=== PATIENT | male | born 1970 | race Caucasian/White ===

== ENCOUNTER → 2017-02-17 | Outpatient (CLI) | payer OTHER | LOC: BIMAGING 14:27 | PROVIDERS: ATTEND Orthopaedic Surgery Hand Surgery | DX: M25.532 Pain in left wrist (principal) ==

== ENCOUNTER 2018-05-05 08:39 | Emergency (ER) | payer OTHER ==
--- NOTE | 2018-05-05 08:53 | EDPHY ---
H & P Time Seen by Provider: 05/05/18 08:53 HPI/ROS: Chief complaint. Chest pain, dizziness HPI. 47-year-old male presents to the emergency department with left anterior chest tightness. No radiation. For the last week he has been dizzy with bending and standing. His chest tightness began this morning. He feels like he can't get deep breath. He has a history of GERD it feels similar though in slightly different location of his chest. He did have some heartburn this morning. He has had no fever cough. No unusual leg pain or swelling. No change in his discomfort with exertion, deep breathing, position. No history of heart problems, diabetes, hypertension. No abdominal pain. ROS 10 systems were reviewed and negative with the exception of the elements mentioned in the history of present illness Past Medical/Surgical History: Cholecystectomy, enlarged prostate Social History: , nonsmoker, no alcohol Smoking Status: Never smoked Physical Exam: General Appearance: Alert well-developed male mild distress. Vital signs are stable Eyes: Pupils equal and round no pallor or injection. ENT, Mouth: Mucous membranes are moist. Respiratory: There are no retractions, lungs are clear to auscultation. Cardiovascular: Regular rate and rhythm. Gastrointestinal: Abdomen is soft and nontender, no masses, bowel sounds normal. Neurological: Awake and alert, sensory and motor exams grossly normal. Skin: Warm and dry, no rashes. Musculoskeletal: Neck is supple nontender. Extremities symmetrical, full range of motion. Psychiatric: Patient is oriented X 3, there is no agitation. Constitutional: Initial Vital Signs Temperature (C) 36.4 C 05/05/18 08:40 Heart Rate 66 05/05/18 08:40 Respiratory Rate 18 05/05/18 08:40 Blood Pressure 147/82 H 05/05/18 08:40 O2 Sat (%) 97 05/05/18 08:40 O2 Delivery Mode Room Air Allergies/Adverse Reactions: No Known Allergies Allergy (Verified 05/05/18 08:39) Home Medications: Medication Instructions Recorded Tamsulosin HCl [Flomax 0.4 MG (RX)] 0.4 mg PO DAILY8 11/23/11 Medical Decision Making - Diagnostics EKG Interpretation: EKG interpreted by me shows normal sinus rhythm normal interval and axis. P- wave inversion lead 3 QRS is normal. There is no significant ST elevation or depression. No arrhythmia. Rate is 69 Repeat EKG showed almost no P-wave activity. The computer reads is atrial fibrillation however it does look like he has small P waves. No ST elevation. Rate 57 Imaging Results: Imaging Impressions Chest X-Ray 05/05/18 08:59 Impression: Query airways disease. One-view chest x-ray interpreted by me as normal Echocardiogram reviewed and discussed with Dr. Quispe for cardiology is normal Procedures: IV normal saline, monitor ED Course/Re-evaluation: Re-evaluation at 10:15 a.m.. Patient is without symptoms. Patient and I discussed workup thus far. We discussed repeat troponin and EKG. He expresses understanding and agreement I consulted discussed case with Dr. Quispe for cardiology who will see the patient in the emergency department Conversation with Dr. Elias clemens at 2:[address] Elias clemens recommends that we keep the patient in the hospital admitting to the hospitalist service for further testing. I discussed this with the patient and he does not wish to stay and would like to follow up as an outpatient. He and I discussed risks and benefits of this plan. He expresses understanding and agreement and agrees to follow up with Dr. Elias clemens as an outpatient. He is encouraged to return at any point for further chest discomfort or trouble breathing Differential Diagnosis: I considered acute coronary syndrome, pericarditis, pneumonia - Data Points Laboratory Results: Laboratory Results 05/05/18 08:57 05/05/18 08:57 05/05/18 05/05/18 05/05/18 10:43 08:58 08:57 WBC RBC Hgb Hct MCV MCH MCHC RDW Plt Count MPV Neut % (Auto) Lymph % (Auto) Jackson % (Auto) Eos % (Auto) Baso % (Auto) Nucleat RBC Rel Count Absolute Neuts (auto) Absolute Lymphs (auto) Absolute Monos (auto) Absolute Eos (auto) Absolute Basos (auto) Absolute Nucleated RBC Immature Gran % Immature Gran # D-Dimer Sodium 137 mEq/L mEq/L (135-145) Potassium 3.8 mEq/L mEq/L (3.5-5.2) Chloride 106 mEq/L mEq/L (97-110) Carbon Dioxide 24 mEq/l mEq/l (22-31) Anion Gap 7 mEq/L mEq/L (6-14) BUN 20 mg/dL mg/dL (7-23) Creatinine 0.9 mg/dL mg/dL (0.7-1.3) Estimated GFR > 60 Glucose 102 mg/dL H mg/dL (70-100) Calcium 9.3 mg/dL mg/dL (8.5-10.4) POC Troponin I 0.00 ng/mL ng/mL 0.00 ng/mL ng/mL (0.00-0.08) (0.00-0.08) Lipase 130 IU/L IU/L (23-300) 05/05/18 05/05/18 08:57 08:57 WBC 4.63 10^3/uL 10^3/uL (3.80-9.50) RBC 4.90 10^6/uL 10^6/uL (4.40-6.38) Hgb 15.5 g/dL g/dL (13.7-17.5) Hct 45.3 % % (40.0-51.0) MCV 92.4 fL fL (81.5-99.8) MCH 31.6 pg pg (27.9-34.1) MCHC 34.2 g/dL g/dL (32.4-36.7) RDW 12.3 % % (11.5-15.2) Plt Count 196 10^3/uL 10^3/uL (150-400) MPV 9.7 fL fL (8.7-11.7) Neut % (Auto) 54.7 % % (39.3-74.2) Lymph % (Auto) 34.1 % % (15.0-45.0) Jackson % (Auto) 6.9 % % (4.5-13.0) Eos % (Auto) 3.0 % % (0.6-7.6) Baso % (Auto) 1.1 % % (0.3-1.7) Nucleat RBC Rel Count 0.0 % % (0.0-0.2) Absolute Neuts (auto) 2.53 10^3/uL 10^3/uL (1.70-6.50) Absolute Lymphs (auto) 1.58 10^3/uL 10^3/uL (1.00-3.00) Absolute Monos (auto) 0.32 10^3/uL 10^3/uL (0.30-0.80) Absolute Eos (auto) 0.14 10^3/uL 10^3/uL (0.03-0.40) Absolute Basos (auto) 0.05 10^3/uL 10^3/uL (0.02-0.10) Absolute Nucleated RBC 0.00 10^3/uL 10^3/uL (0-0.01) Immature Gran % 0.2 % % (0.0-1.1) Immature Gran # 0.01 10^3/uL 10^3/uL (0.00-0.10) D-Dimer 0.28 ug/mLFEU ug/mLFEU (0.00-0.50) Sodium Potassium Chloride Carbon Dioxide Anion Gap BUN Creatinine Estimated GFR Glucose Calcium POC Troponin I Lipase Medications Given: Discontinued Medications Sodium Chloride (Ns) 1,000 mls @ 0 mls/hr IV EDNOW ONE; Wide Open PRN Reason: Protocol Stop: 05/05/18 09:00 Last Admin: 05/05/18 09:03 Dose: 1,000 mls Point of Care Test Results: Chemistry 05/05/18 05/05/18 10:43 08:58 POC Troponin I 0.00 ng/mL ng/mL 0.00 ng/mL ng/mL (0.00-0.08) (0.00-0.08) Departure - Departure Disposition: Home, Routine, Self-Care Clinical Impression: Chest pain Qualifiers: Chest pain type: unspecified Qualified Code(s): R07.9 - Chest pain, unspecified Condition: Good Instructions: Chest Pain (ED) Additional Instructions: Easy activity next 2 days Return for further chest discomfort or trouble breathing Call Dr. Griffin I will today to schedule appointment in the office and further evaluation. Referrals: NONE *PRIMARY CARE P,. [Primary Care Provider] - As per Instructions John Paul Quispe MD [Medical Doctor] - 2-3 days, call for appt.
[2018-05-05] MEDS ORDERED: NS 1,000 ML IV ONE (08:59)
[2018-05-05 09:05] LABS: PLATELET COUNT 196 10^3/uL (150-400)
--- NOTE | 2018-05-05 13:43 | GCON ---
[f rep st] CONSULTATION CARDIOLOGY CONSULTATION. DATE OF CONSULTATION: 05/05/2018 REFERRING PHYSICIAN: Tee Swann MD REASON FOR CONSULTATION: Chest pain. HISTORY OF PRESENT ILLNESS: The patient is a pleasant of 47-year-old gentleman with a past medical h istory of GERD, who uses Pepcid AC p.r.n., who [facility] with new onset of chest pain. He describes over the last week to 10 days he has noticed a decline in his exer cise tolerance, dyspnea on exertion, and new onset of fatigue. He is physically active and participa judy in [employer] training several days a week. He denies any recent viral illness, fevers, chills, s weats, nausea, or vomiting. He has had no recent travel. He states that this morning when he woke up he noticed left-sided chest pain at approximately the 6th intercostal space, midclavicular line. He described the pain as feeling as if something was stuck i n his chest. He described it as 2/10 nonradiating with no exacerbating or alleviating factors. He s tates he has never felt this pain before. This pain was not exacerbated by palpation or relieved wit h palpation. Currently, at the time of my exam, he is resting comfortably. He is without discomfort at this time. REVIEW OF SYSTEMS: Notable for dyspnea on exertion, exertional intolerance, fatigue, and also new co mplaints of paroxysmal nocturnal dyspnea. He denies complaints of palpitations, dizziness, near sync ope, or syncope. He denies any complaints of fevers, chills, sweats, nausea, or vomiting. He has no complaints of abdominal pain, back pain, flank pain. He denies any complaints of exertional chest s ymptoms. He has no complaints of lower extremity edema. He does admit to some lightheadedness with bending over. PAST MEDICAL HISTORY: GERD. PAST SURGICAL HISTORY: Cholecystectomy, hernia repair and dental implant. MEDICATIONS ON ADMISSION: None. He does use Pepcid AC [id number] p.r.n. ALLERGIES TO MEDICATIONS: None. 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 He is . He has 2 sons, ages 15 and 17. He is a felong nonsmoker. He does not use marijuana. He occasionally drinks alcohol. He exercises regularl y at [employer]. FAMILY HISTORY: He notes maternal grandparents both from myocardial infarctions in their 60s. His mother is alive and well with no known history of heart disease. His father was a heavy smoker a nd at the age of 67 from lung cancer. He has 2 sisters who are alive and well with no known his tory of heart disease. PHYSICAL EXAMINATION: GENERAL: He is awake, alert, oriented, appropriate. No apparent distress. V ITAL SIGNS: Blood pressure 127/69, heart rate of 61, oxygen saturation 98% on room air. Respiratory rate of 16. NECK: There is no evidence of JVP or carotid bruits. LUNGS: Clear to auscultation bi laterally. CARDIAC: S1, S2. Regular rate and rhythm. No murmurs, rubs, or gallops. ABDOMEN: Sof t, nontender, nondistended. There is no pulsatile mass or abdominal bruit. EXTREMITIES: He has no evidence of cyanosis, clubbing or edema. LABORATORY DATA: Lab results demonstrate white blood cell count of 4.6, hemoglobin of 15.5, hematocr it of 45.3, platelet count 196. Lab work: Sodium of 137, potassium 3.8, chloride 106, bicarb 24, BUN 20, creatinine 0.9, glucose 102 . Point of care troponin was 0 at 8:58 a.m. Repeat troponin at 10:43 a.m. of 0. Of note pain began approximately 1 hour prior to admission. Lipase is normal at 133. Data: Initial ECG at 8:43 a.m. demonstrates normal sinus rhythm. Of note, P waves are somewhat diff icult to discern but are notable in leads V3. He has negative P wave in leads III and AVF as well as lead 1. ECG is notable for normal axis with incomplete right bundle branch block with QRS duration of 110 milliseconds and RR prime in V1 and V2. Normal R-wave progression. No previous ECG for cody rison. Repeat ECG at 10:37 a.m. demonstrates sinus arrhythmia. Again, P waves are difficult to disc pia but are noticeable in leads V2 and V3. Rate is slightly irregular consistent with sinus arrhythm ia. There is evidence of early repolarization changes. IMPRESSION: 1. Atypical chest pain. 2. New onset of dyspnea on exertion. 3. New onset of exertional intolerance. 4. New onset of fatigue. SUMMARY: The patient is a 47-year-old gentleman with a week to 10-day history of dyspnea on exertion , exercise intolerance and fatigue who awoke with new onset of atypical 2/10 nonradiating left-sided chest discomfort that is currently resolved with initial troponins x2 point of care that were negativ e. No evidence of ischemia or infarction on ECG. RECOMMENDATIONS: 1. Recommend echocardiogram to be performed now in the emergency room. 2. Further workup will depend on results of echocardiogram. /[id number]/MODL
--- NOTE | 2018-05-05 14:37 | ECHO ---
[email or web address] [address] [address] Main: [phone] Fax: Transthoracic Echocardiogram Name: PETRONA TYLER MR#: [id number] Study Date: 05/05/2018 Study Time: 12:40 PM Date of : 1970 Age: 47 year(s) Height: 190.5 cm (75 in.) Weight: 80.29 kg (177 lb.) BSA: 2.08 m2 Gender: Male Examination: Echo Indication: Chest Pain Image Quality: Adequate Contrast: Requested by: Tee Swann BP: / Heart Rate: Rhythm: Indication: Chest Pain Procedure Staff Harbormaster: Shantel Winn [facility] Reading Physician: John Paul Quispe MD Requesting Provider: Conclusions: Normal size left ventricle. Normal global systolic LV function. EF is 66 %. No regional wall motion abnormality. Normal diastolic LV function. Normal RV function. The left atrium is normal in size. The right atrium is normal in size. Normal size ascending aorta measuring 3.0 cm. The IVC is normal sized. No pericardial effusion. Hepatic Cyst noted. Measurements: Chambers Valvular Assessment AV/MV Valvular Assessment TV/PV Normal Normal Normal Name Value Range Name Value Range Name Value Range Ao Carla (2D): 3.3 cm (1.4 cm-2.6 AV Vmax: 1.17 m/s (1 m/s-1.7 PV Vmax: 0.81 m/s (0.6 m/s-0.9 cm) m/s) m/s) IVSd (2D): 0.8 cm (0.6 cm-1.1 AV maxP mmHg ( - ) PV PGmax: 3 mmHg ( - ) cm) AV meanP mmHg ( - ) LVDd (2D): 4.5 cm (4.2 cm-5.9 LVOT Vmax: 1.11 m/s (0.7 m/s-1.1 cm) m/s) LVDs (2D): 3.1 cm (2.1 cm-4 JUSTINO (Vmax): 3.9 cm2 ( - ) cm) JUSTINO (VTI): 4.2 cm ( - ) LVPWd (2D): 0.9 cm (0.6 cm-1 MV E Vmax: 0.71 m/s ( - ) cm) MV A Vmax: 0.34 m/s ( - ) LVOTd 2.3 cm 2.3 cm mm MV E/A: 2.09 ( - ) LVEF (BP): 66 % (>=55 %) MV PHT: 0.070 s ( - ) RVDd(2D): 2.5 cm (1.9 cm-3.8 cmmm) MVA (PHT): 3.1 s ( - ) Patient: PETRONA TYLER Study Date: 05/05/2018 Page 1 of 2 12:40 PM Continued Measurements: Chambers Valvular Assessment AV/MV Name Value Name Value LADs: 3.2 cm MV DecTime: 229 m/s LADs Lon.8 cm MV E/E' Septal: 5.70 LA Area: 15.1 cm2 MV E/E' Lateral: 5.50 LA Volume: 50 ml LA Volume Index: 24.0 ml/m2 RA Area: 14.5 cm2 Additional Vessels Name Value Ao Ascendin.0 cm Inferior Vena Cava: 1.7 cm Findings: Left Ventricle: Normal size left ventricle. No LV hypertrophy. Normal global systolic LV function. EF is 66 %. No regional wall motion abnormality. Normal diastolic LV function. Right Ventricle: Normal size right ventricle. Normal RV function. Left Atrium: The left atrium is normal in size. Right Atrium: The right atrium is normal in size. Mitral Valve: The mitral valve is normal in appearance and function. Mild mitral valve regurgitation is present. No mitral stenosis is present. Aortic Valve: The aortic valve is tri-leaflet. There is no significant aortic valve regurgitation. No aortic valve stenosis is present. Tricuspid Valve: The tricuspid valve is normal in appearance and function. Trivial tricuspid valve regurgitation. Pulmonic Valve: The pulmonic valve is normal in appearance and function. There is no pulmonic regurgitation seen. Aorta: The aorta is normal. Normal size aortic root measuring 3.3 cm. Normal size ascending aorta measuring 3.0 cm. IVC: The IVC is normal sized. Pericardium: No pericardial effusion. (No Signature Object) Patient: PETRONA TYLER Study Date: 05/05/2018 Page 2 of 2 12:40 PM [id number]
[2018-05-05 14:40] VITALS: BP 135/74
--- NOTE | 2018-05-05 15:06 | CPEKG ---
Test Reason : OPEN Blood Pressure : / mmHG Vent. Rate : 069 BPM Atrial Rate : 069 BPM P-R Int : 150 ms QRS Dur : 110 ms QT Int : 404 ms P-R-T Axes : -49 016 057 degrees QTc Int : 433 ms Sinus or ectopic atrial rhythm ST elev, probable normal early repol pattern Confirmed by Tee Swann ([id number]) on 05/05/2018 3:05:43 PM Referred By: PHYSICIAN ED Confirmed By:Tee Swann
--- NOTE | 2018-05-05 15:06 | CPEKG ---
Test Reason : OPEN Blood Pressure : / mmHG Vent. Rate : 057 BPM Atrial Rate : 000 BPM P-R Int : 035 ms QRS Dur : 101 ms QT Int : 424 ms P-R-T Axes : -54 043 058 degrees QTc Int : [address] elevation suggests acute pericarditis Confirmed by Kirk Swann ([id number]) on 05/05/2018 3:06:38 PM Referred By: KIRK SWANN Confirmed By:Kirk Swann
== END 2018-05-05 14:40 | disposition home or self-care (01) ==
DX: R07.9 Chest pain, unspecified (principal); E86.9 Volume depletion, unspecified; R42 Dizziness and giddiness; R06.02 Shortness of breath; R53.83 Other fatigue; K21.9 Gastro-esophageal reflux disease without esophagitis; N40.0 Benign prostatic hyperplasia without lower urinary tract symptoms
CPT/HCPCS: 84484-ER